=== PATIENT | female | born 1960 | race Caucasian/White ===

== ENCOUNTER 2017-05-27 16:17 | Emergency (ER) | payer MEDICAID ==
[~2017-05-27] VITALS: Ht 160 cm; Wt 45.8 kg
[~2017-05-27 16:17] MED LIST: CLON0.5T; FERRTAB; LORA-655; MECLIZINE; MIRTAZAPINE; OLAN2.5T25; PHENERGAN; PREVACID; SUMA6KIT; [UNRECOGNIZED DRUG - OTHER]
[2017-05-27 19:02] LABS: Urine Bilirubin Negative (Negative); Urine Blood Negative /uL (Negative); Urine Color Yellow (Yellow); Urine Glucose Normal (Normal); Urine Ketone 2+ (Negative); Urine Mucus FEW (None Seen); Urine Nitrite Negative (Negative); Urine RBC 1 /hpf (0 - 4); Urine Squamous Epithelial Cell FEW /hpf (<5); Urine Urobilinogen Normal (Negative); Urine pH 5.5 (5.0-8.0)
[2017-05-27 19:08] LABS: Basophils # (auto) 0.1 uL; Basophils % (auto) 0.7 % (0.0-2.0); Eosinophils # (auto) 0 uL; Eosinophils % (auto) 0.4 % (0.0-7.0); Lymphocytes # (auto) 0.9 uL; Lymphocytes % (auto) 8.6 % (10.0-50.0); Mean Corpuscular Hemoglobin 32.3 pg (28.0-32.0); Mean Corpuscular Hgb Conc. 33.3 g/dL (32.0-36.0); Mean Corpuscular Volume 96.8 fL (80.0-100.0); Mean Platelet Volume 6.9 fL (6.9-10.8); Monocytes # (auto) 0.3 uL; Monocytes % (auto) 3.4 % (0.0-12.0); Neutrophils # (auto) 8.7 uL; Neutrophils % (auto) 86.9 % (37.0-80.0); Nucleated Red Blood Cells % 0.1 %; Platelet Count (auto) 263 10^3/uL (140-450); Red Cell Distribution Width 13.4 % (11.8-14.3)
[2017-05-27 19:41] LABS: Albumin 4.5 g/dL (3.4-5.0); BUN/Creatinine Ratio 16.7; Bilirubin, Total 0.3 mg/dL (0.2-1.0); Calcium 9.3 mg/dL (8.5-10.1); Potassium 3.3 mmol/L (3.5-5.1); Total Protein 7.6 g/dL (6.4-8.2)
[2017-05-27] MEDS ORDERED: ACETAMINOPHEN 500 MG TAB PO ONE ×2 (19:45→21:45)
[2017-05-27 22:12] VITALS: BP 117/75
== END 2017-05-27 23:57 | disposition home or self-care (01) ==
LOC: ER 16:17 → EDBD 16:17 → ER 23:55
DX: S39.012A Strain of muscle, fascia and tendon of lower back, initial encounter (principal); S16.1XXA Strain of muscle, fascia and tendon at neck level, initial encounter; S09.90XA Unspecified injury of head, initial encounter; W19.XXXA Unspecified fall, initial encounter; E78.00 Pure hypercholesterolemia, unspecified; G43.909 Migraine, unspecified, not intractable, without status migrainosus; Y92.89 Other specified places as the place of occurrence of the external cause; Y93.89 Activity, other specified; Y99.8 Other external cause status
CPT/HCPCS: 36415; 70450; 72125; 72131; 80053; 81001; 85025; 93005; 94761

== ENCOUNTER → 2019-11-28 | Emergency (ER) | payer MEDICAID ==
[~2019-11-28] VITALS: Ht 162.6 cm; Wt 52.2 kg
[~2019-11-28] MED LIST changes: +ACETAMINOPHEN 500 MG TAB PO ONE; +SODIUM CHLORIDE 0.9% 1,000 ML IV ONE; +cefTRIAXone 1GM/50ML D5W 50 ML IV ONE
[2019-11-28 17:35] LABS: Urine Bacteria FEW /hpf (None Seen); Urine Blood TRACE /uL (Negative); Urine Hyaline Cast FEW /lpf (0 - 2); Urine Mucus FEW (None Seen); Urine Specific Gravity 1.019 (1.001-1.035); Urine WBC 877 /hpf (0 - 5); Urine WBC Clumps PRESENT /hpf (None Seen)
[2019-11-28 17:48] LABS: Basophils # (auto) 0.1 10 ^3/uL (0-0.2); Basophils % (auto) 0.9 % (0.0-2.0); Eosinophils # (auto) 0 10 ^3/uL (0-0.8); Eosinophils % (auto) 0.3 % (0.0-7.0); Hematocrit 44.5 % (36.0-46.0); Hemoglobin 14.9 g/dL (12.2-16.2); Lymphocytes # (auto) 0.7 10 ^3/uL (0.4-5.4); Lymphocytes % (auto) 7.8 % (10.0-50.0); Mean Corpuscular Hemoglobin 31.7 pg (28.0-32.0); Mean Corpuscular Hgb Conc. 33.5 g/dL (32.0-36.0); Mean Corpuscular Volume 94.7 fL (80.0-100.0); Monocytes # (auto) 0.5 10 ^3/uL (0-1.3); Monocytes % (auto) 5.8 % (0.0-12.0); Neutrophils # (auto) 7.7 10 ^3/uL (1.6-8.6); Neutrophils % (auto) 85.2 % (37.0-80.0); Nucleated Red Blood Cells % 0.1 %; Platelet Count (auto) 331 10^3/uL (140-450); Red Cell Distribution Width 13.4 % (11.8-14.3); White Blood Cell 9.1 10^3/uL (4.4-10.8)
[2019-11-28 18:10] LABS: Albumin 4.3 g/dL (3.4-5.0); BUN/Creatinine Ratio 20.4; Calcium 10.1 mg/dL (8.5-10.1); Potassium 4.4 mmol/L (3.5-5.1)
[2019-11-28 18:13] LABS: Bilirubin, Total 0.4 mg/dL (0.2-1.0); Total Protein 8.1 g/dL (6.4-8.2)
[2019-11-28 22:00] VITALS: BP 118/72
== END | disposition home or self-care (01) ==
LOC: EDUNIT# 16:43 → EDBD 16:43 → ER 16:43
DX: S00.03XA Contusion of scalp, initial encounter (principal); R55 Syncope and collapse; I11.0 Hypertensive heart disease with heart failure; I50.9 Heart failure, unspecified; N39.0 Urinary tract infection, site not specified; E78.5 Hyperlipidemia, unspecified; W18.39XA Other fall on same level, initial encounter; Y93.01 Activity, walking, marching and hiking; Y92.89 Other specified places as the place of occurrence of the external cause; Y99.8 Other external cause status
CPT/HCPCS: 36415; 70450; 71046; 72125; 80053; 81001; 83735; 85025; 93005; 96361; 96365; 99285; J0696; J7030

== ENCOUNTER 2023-08-12 09:42 | Emergency (ER) | payer MEDICAID ==
[~2023-08-12] VITALS: Ht 175.3 cm; Wt 52.2 kg
[~2023-08-12 09:42] MED LIST changes: -ACETAMINOPHEN 500 MG TAB PO ONE; +CLON-1003; -CLON0.5T; +OLAN2.5T2; -OLAN2.5T25; -SODIUM CHLORIDE 0.9% 1,000 ML IV ONE; -cefTRIAXone 1GM/50ML D5W 50 ML IV ONE
[2023-08-12 10:03] VITALS: BP 114/80; RESP 16; O2SAT 99
[2023-08-12 10:22] VITALS: PULSE 116
[2023-08-12 10:38] LABS: Basophils # (auto) 0.1 10 ^3/uL (0-0.2); Basophils % (auto) 0.6 % (0.0-2.0); Eosinophils # (auto) 0.2 10 ^3/uL (0-0.8); Eosinophils % (auto) 1.7 % (0.0-7.0); Hematocrit 42.2 % (36.0-46.0); Hemoglobin 13.9 g/dL (12.2-16.2); Lymphocytes # (auto) 0.6 10 ^3/uL (0.4-5.4); Lymphocytes % (auto) 6.3 % (10.0-50.0); Mean Corpuscular Hgb Conc. 32.9 g/dL (32.0-36.0); Mean Corpuscular Volume 94.1 fL (80.0-100.0); Monocytes # (auto) 0.5 10 ^3/uL (0-1.3); Monocytes % (auto) 5.3 % (0.0-12.0); Neutrophils # (auto) 7.9 10 ^3/uL (1.6-8.6); Neutrophils % (auto) 86.1 % (37.0-80.0); Red Blood Cells 4.49 10^6/uL (4.0-5.20); Red Cell Distribution Width 13.7 % (11.8-14.3); White Blood Cell 9.2 10^3/uL (4.4-10.8)
[2023-08-12 11:10] LABS: Alanine Aminotransferase 25 U/L (7-40); Albumin 4.7 g/dL (3.2-4.8); Alkaline Phosphatase 77 U/L (46-116); Anion Gap 10 (5-15); Aspartate Aminotransferase 21 U/L (13-40); BUN/Creatinine Ratio 12.7 (10.0-20.0); Bilirubin, Total 0.6 mg/dL (0.2-1.0); Blood Urea Nitrogen 10 mg/dL (9-23); Carbon Dioxide 22 mmol/L (20-30); Chloride 106 mmol/L (98-107); Glucose 123 mg/dL (74-106); Potassium 3.9 mmol/L (3.5-5.1); Sodium 138 mmol/L (136-145); Total Protein 7.3 g/dL (5.7-8.2)
== END 2023-08-12 12:30 | disposition left against medical advice (07) ==
LOC: ER 09:42 → EDBD 09:42 → ER 12:30
DX: R10.11 Right upper quadrant pain (principal); R10.13 Epigastric pain; I50.9 Heart failure, unspecified; E78.5 Hyperlipidemia, unspecified; Z79.899 Other long term (current) drug therapy; Z88.0 Allergy status to penicillin; Z88.5 Allergy status to narcotic agent; Z88.8 Allergy status to other drugs, medicaments and biological substances
CPT/HCPCS: 36415; 74176; 80053; 83690; 85025; 93005